=== PATIENT | male | born 1995 | race Caucasian/White ===

== ENCOUNTER 2020-02-15 22:04 | Emergency (ER) | payer BC ==
[~2020-02-15] VITALS: Ht 175.3 cm; Wt 97.7 kg
[2020-02-15 22:10] VITALS: BP 134/84
[2020-02-15] MEDS ORDERED: CEPHALEXIN500 M1 PO (22:25)
[2020-02-15 22:40] VITALS: PULSE 85
== END 2020-02-15 22:40 | disposition home or self-care (01) ==
LOC: COL.ER 22:04
DX: S61.211A Laceration without foreign body of left index finger without damage to nail, initial encounter (principal); Y92.009 Unspecified place in unspecified non-institutional (private) residence as the place of occurrence of the external cause; W26.0XXA Contact with knife, initial encounter

== ENCOUNTER → 2020-05-27 | Outpatient (CLI) | payer OTHER ==
[~2020-05-27] MED LIST: CEPHALEXIN500 M1 PO
[2020-05-27 14:07] VITALS: BP 132/80; PULSE 82; TEMP 98
== END ==
LOC: COL.ER 13:58
DX: Z48.02 Encounter for removal of sutures (principal)